=== PATIENT | male | born 1960 | race Caucasian/White ===

== ENCOUNTER 2017-07-07 10:04 | Emergency (ER) | payer OTHER, MEDICAID ==
[~2017-07-07 10:04] MED LIST: HYDR-3129 PO
[2017-07-07 10:10] VITALS: BP 186/114; PULSE 92; RESP 22; TEMP 98.4; O2SAT 99
[2017-07-07] MEDS ORDERED: KETOROLAC TROMETHAMINE 60 MG/2 ML (IM) VIAL IM ONE (11:45)
[2017-07-07] MEDS ORDERED: ACETAMINOPHEN/HYDROcodone 325 MG/10 MG TAB PO ONE (11:45)
--- NOTE | 2017-07-07 11:50 | PD ---
HPI Chief Complaint: Syncope/Near-Syncope Time Seen by Provider: 11:16 Travel History International Travel<30 days: No Contact w/Intl Traveler<30days: No Traveled to known affect area: No History of Present Illness HPI 57-year-old male that presents to the ED for evaluation of left hand injury. Per patient about 6 months ago he injured his hand and he didn't think much of it until a month ago. About a month ago he went to see his primary care doctor who ordered an x-ray and show fracture of the first metacarpal. Patient was put on a splint and told to follow with a hand surgeon. He actually has an appointment on Saturday. Patient was given Lortab with some relief but per patient he symptoms have worsened after he fell 2 days ago. Per patient he lost his footing and he landed on his left hand. Per patient the pain is on the same area where he had the pain before. Per patient pain is more severe this time. He says his hands to work. He denies any numbness, tingling, weakness. He has pain with range of motion of the hand especially the first digit. He is able to move all fingers. He denies any numbness, tilling, weakness. He is compliant with the brace. Per patient he was hoping he could wait until Saturday but the pain since last night has become more severe. His been taking OTC meds with minimal relief. He has no allergies to medication. Other medical issues. No head injury or loss of consciousness. Patient's pain per patient is 10 out of 10 especially on the first digit. PFSH Past Medical History Anxiety: Yes Heart Rhythm Problems: No Cardiac Catheterization: No Cardiovascular Problems: Yes (said in past was told had a valve prob at [facility] never foll up) High Cholesterol: Yes (not on any meds) COPD: Yes Diabetes: No Hypertension: Yes (NO MEDS) Past Surgical History Appendectomy: Yes Other Surgery: Yes (BACK SCOLIOSIS) Social History Alcohol Use: No Tobacco Use: Yes Substance Use: No Allergies-Medications (Allergen,Severity, Reaction): Coded Allergies: No Known Allergies (Verified , 09/13/13) Reported Meds & Prescriptions Reported Meds & Active Scripts Active Lortab (Hydrocodone-Acetaminophen) 5-325 Mg Tab 1 Tab PO Q6H PRN Diclofenac Sodium DR (Diclofenac Sodium) 75 Mg Tabdr 75 Mg PO BID PRN Reported [place] 10-325 mg (Hydrocodone-Acetaminophen 10-325 mg) 1 Tab Tab 1 Tab PO BID Review of Systems Except as stated in HPI: all other systems reviewed are Neg Physical Exam Narrative GENERAL: SKIN: Warm and dry. HEAD: Atraumatic. Normocephalic. EYES: Pupils equal and round. No scleral icterus. No injection or drainage. ENT: No nasal bleeding or discharge. Mucous membranes pink and moist. Tongue is midline. No uvula deviation. NECK: Trachea midline. No JVD. CARDIOVASCULAR: Regular rate and rhythm. No murmurs, S3, S4. RESPIRATORY: No accessory muscle use. Clear to auscultation. Breath sounds equal bilaterally. GASTROINTESTINAL: Abdomen soft, non-tender, nondistended. Hepatic and splenic margins not palpable. MUSCULOSKELETAL: Extremities without clubbing, cyanosis, or edema. No obvious deformities. Full range of motion of the upper and lower extremities bilaterally. Patient does have bruising and swelling noted on the first metacarpal of the left hand. Patient able to move all fingers with exception of the first digit which she cannot completely flex secondary to pain. He has good capillary refill. Sensation intact bilaterally. Patient does have 2+ pulses on the ulnar and radial area. Some pain around the scaphoid area. Good capillary refill to all fingers. Patient has full range of motion of the entire right upper extremity. Patient has full range of motion of the left elbow and shoulder. No lumbar, thoracic, cervical spine tenderness to palpation. NEUROLOGICAL: Awake and alert. No obvious cranial nerve deficits. Motor grossly within normal limits. Five out of 5 muscle strength in the arms and legs. Normal speech. PSYCHIATRIC: Appropriate mood and affect; insight and judgment normal. Data Data Last Documented VS Vital Signs Date Time Temp Pulse Resp B/P (MAP) Pulse Ox O2 Delivery O2 Flow Rate FiO2 07/07/17 11:07 97 Room Air 07/07/17 10:10 98.4 92 22 186/114 (138) Orders Orders Hand, Complete ([id number]) (07/07/17 11:31) Wrist, Complete ([id number]) (07/07/17 11:31) Ice/Cold Pack (07/07/17 11:31) Ketorolac Inj (Toradol Inj) (07/07/17 11:45) Acetamin-Hydrocod 325-10 Mg ([place] 10-32 (07/07/17 11:45) [facility] Medical Decision Making Medical Screen Exam Complete: Yes Emergency Medical Condition: Yes Medical Record Reviewed: Yes Interpretation(s) xray of the left hand showed avulsion fracture of the left first metacarpal. X-ray of the left wrist showed no sign of acute bony injury. Differential Diagnosis Fracture versus sprain versus strain versus bruise versus contusion Narrative Course 57-year-old male that presents to the ED for evaluation of left hand injury. She was properly examined and was found to have signs and symptoms consistent with bony injuries. X-rays were ordered. Pain medication was given. Imaging showed fractures. patient ressured. Told to follow up with Hand specialist on saturday. Keep splint in place. Follow up with PCP. See ED if worst. Given prescriptions for lortab and diclofenac sodium. Diagnosis Primary Impression: Avulsion fracture of shaft of metacarpal bone Qualified Codes: S62.329A - Displaced fracture of shaft of unspecified metacarpal bone, initial encounter for closed fracture Patient Instructions: Narcotic given in the ED, General Instructions Additional Instructions: Follow with her hand surgeon on Saturday. Take medications only as needed. Ice to the area. Keep splint in place. See ED for worsening symptoms. Med/Other Pt SpecificInfo: Prescription(s) given Scripts Hydrocodone-Acetaminophen (Lortab) 5-325 Mg Tab 1 TAB PO Q6H Y for PAIN, #12 TAB 0 Refills Prov: Mayra Epstein MD 07/07/[address] (Diclofenac Sodium DR) 75 Mg Tabdr 75 MG PO BID Y for PAIN SCALE 1 TO 10, #20 TAB 0 Refills Prov: Mayra Epstein MD 07/07/17 Disposition: 01 DISCHARGE HOME Condition: Stable Jony Gerard Jul 07, 2017 11:50
--- NOTE | 2017-07-07 11:59 | RADRPT ---
EXAM DATE/TIME: 07/07/2017 11:41 [facility] COMPARISON: No previous studies available for comparison. INDICATIONS : Left hand pain, fell MEDICAL HISTORY : Hypertension. SURGICAL HISTORY : Appendectomy. ENCOUNTER: Initial ACUITY: 1 week PAIN SCORE: 10/10 LOCATION: Left Hand FINDINGS: Three view examination of the left hand demonstrates an avulsion fracture type injury involving the b ase of the first metacarpal. Age is undetermined. Recommend correlation with point tenderness. Otherw ise, the rest of the bony structures are grossly intact. The carpal bones are grossly intact. No join t dislocation is seen.. CONCLUSION: Avulsion fracture type injury involving the base of the first metacarpal. Recommend correlation with point tenderness. Solomon Rose MD on July 07, 2017 at 11:55 Board Certified Radiologist. This report was verified electronically.
--- NOTE | 2017-07-07 12:00 | RADRPT ---
EXAM DATE/TIME: 07/07/2017 11:42 [facility] COMPARISON: No previous studies available for comparison. INDICATIONS : Left wrist pain, fell MEDICAL HISTORY : Hypertension. SURGICAL HISTORY : Appendectomy. ENCOUNTER: Initial ACUITY: 1 week PAIN SCORE: 10/10 LOCATION: Left Wrist FINDINGS: Three view examination of the left wrist demonstrates no soft tissue swelling, dislocation, or fractu re. The carpal bones are in normal alignment. The joint spaces are maintained. Bony mineralization is normal. There appears to be an avulsion fracture type injury involving the base of the first meta carpal. Age is undetermined. Correlate with point tenderness. CONCLUSION: No acute fracture or joint dislocation involving the wrist. Solomon Rose MD on July 07, 2017 at 11:57 Board Certified Radiologist. This report was verified electronically.
[2017-07-07] MEDS ORDERED: DICL75TA PO (12:05)
[2017-07-07] MEDS ORDERED: HYDR-3533 PO (12:05)
== END 2017-07-07 13:16 | disposition home or self-care (01) ==
LOC: NEPC 10:04
DX: S62.232A Other displaced fracture of base of first metacarpal bone, left hand, initial encounter for closed fracture (principal); W19.XXXA Unspecified fall, initial encounter
CPT/HCPCS: 73110; 73130; 96372; 99284; J1885